=== PATIENT | male | born 1985 | race Caucasian/White ===

== ENCOUNTER 2018-06-19 10:29 | Emergency (ER) | payer OTHER ==
[~2018-06-19] VITALS: Ht 160 cm; Wt 77.1 kg
[2018-06-19 10:42] VITALS: Ht 160 cm; Wt 77.1 kg
[2018-06-19 11:59] VITALS: BP 117/88
== END 2018-06-19 11:59 | disposition home or self-care (01) ==
LOC: ED 10:29
DX: M54.41 Lumbago with sciatica, right side (principal)
CPT/HCPCS: J1885; J2270; Q0163